=== PATIENT | female | born 2000 | race American Indian/Alaskan Native ===

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

== ENCOUNTER 2021-09-08 17:42 | Emergency (ER) | payer OTHER ==
[2021-09-08 20:17] VITALS: BP 124/64
[2021-09-08 20:49] LABS: Hematocrit 42.9 % (30.3-42.9); Hemoglobin 14.4 gm/dl (10.1-14.3); Mean Corpuscular HGB Conc 33 % (30-34); Mean Corpuscular Volume 82 fl (79-97); Platelet Count 251 K/mm3 (140-440); Red Blood Count 5.25 M/mm3 (3.65-5.03); Red Cell Distribution Width 16.1 % (13.2-15.2)
[2021-09-08 20:50] LABS: Bilirubin,Urine MOD (Negative); Blood,Urine NEG (Negative); Color,Urine Red (Yellow)
[2021-09-08 20:57] LABS: Alanine Aminotransferase 117 units/L (7-56); Blood Urea Nitrogen 6 mg/dL (7-17); Calcium 10.4 mg/dL (8.4-10.2); Hemolysis Index 62
[2021-09-08 20:58] LABS: BUN/Creatinine Ratio 12
[2021-09-08 20:59] LABS: Mucus,Urine FEW /HPF; WBC,Urine < 1.0 /HPF (0.0-6.0)
[2021-09-08 21:00] LABS: Ictotest,Urine Negative (Negative)
--- NOTE | 2021-09-08 21:04 | Ultrasound Report ---
TRANSABDOMINAL OB PELVIC ULTRASOUND INDICATION / CLINICAL INFORMATION: Abdominal pain. COMPARISON: None available. FINDINGS: There is a single intrauterine with an estimated sonographic gestational age of 16 weeks 2 days and an MIRNA of 02/21/22. Clinical dates are 15 weeks 3 days. presentation is cephalic. The heart rate is 160 bpm. Amniotic fluid volume is normal. The placenta is located anteriorly, is grade 0 and is free of the os. There is no evidence of abruption. The cervix measures 3.4 cm in lengt h and the internal os is closed. Neither ovary is identified. No or maternal abnormality is see n. IMPRESSION: Single viable 16 week 2 day intrauterine without complication. Signer Name: Alec Hernadnez MD Signed: 09/08/2021 8:59 PM Workstation Name: [id number]
[2021-09-08] MEDS ORDERED: METOCLOPRAMIDE 10 MG/2 ML INJ IV STA (22:58)
[2021-09-08] MEDS ORDERED: diphenhydrAMINE 50 MG/ML VIAL IV STA (22:58)
--- NOTE | 2021-09-08 23:13 | Emergency Department Report ---
ED General Adult HPI - General Chief complaint: Nausea/Vomiting/Diarrhea Stated complaint: ABD PAIN N/V Time Seen by Provider: 09/08/21 20:41 Source: EMS Mode of arrival: Ambulatory Limitations: No Limitations - History of Present Illness Severity scale (0 -10): 0 - Related Data Previous Rx's Medication Instructions Recorded Last Taken Type Cyclobenzaprine [Flexeril] 10 mg PO Q12H PRN #12 tablet 12/03/19 Unknown Rx Ibuprofen [Motrin] 800 mg PO Q8HR PRN #24 tablet 12/03/19 Unknown Rx Ibuprofen [Motrin] 600 mg PO Q8H PRN #20 tablet 01/23/20 Unknown Rx Sulfamethoxazole/Trimethoprim 1 each PO BID 5 Days #10 tablet 01/23/20 Unknown Rx [Bactrim DS TAB] Ondansetron [Zofran ODT TAB] 8 mg PO Q12HR #20 tab.rapdis 09/08/21 Unknown Rx Allergies Allergy/AdvReac Type Severity Reaction Status Date / Time No Known Allergies Allergy Verified 09/08/21 20:17 ED Review of Systems ROS: Stated complaint: ABD PAIN N/V Other details as noted in HPI Comment: All other systems reviewed and negative ED Past Medical Hx - Past Medical History Previous Medical History?: No - Surgical History Past Surgical History?: No - Social History Smoking Status: Never Smoker Substance Use Type: None - Medications Home Medications: Home Medications Medication Instructions Recorded Confirmed Last Taken Type Cyclobenzaprine [Flexeril] 10 mg PO Q12H PRN #12 tablet 12/03/19 09/08/21 Unknown Rx Ibuprofen [Motrin] 800 mg PO Q8HR PRN #24 tablet 12/03/19 09/08/21 Unknown Rx Ibuprofen [Motrin] 600 mg PO Q8H PRN #20 tablet 01/23/20 09/08/21 Unknown Rx Sulfamethoxazole/Trimethoprim 1 each PO BID 5 Days #10 tablet 01/23/20 09/08/21 Unknown Rx [Bactrim DS TAB] Ondansetron [Zofran ODT TAB] 8 mg PO Q12HR #20 tab.rapdis 09/08/21 Unknown Rx ED Physical Exam - General Limitations: No Limitations General appearance: alert, in no apparent distress - Head Head exam: Present: atraumatic, normocephalic - Eye Eye exam: Present: normal appearance, PERRL Pupils: Present: normal accommodation - ENT ENT exam: Present: normal exam, mucous membranes moist - Neck Neck exam: Present: normal inspection - Respiratory Respiratory exam: Present: normal lung sounds bilaterally. Absent: respiratory distress, wheezes, rales, accessory muscle use, decreased breath sounds - Cardiovascular Cardiovascular Exam: Present: regular rate, normal rhythm. Absent: systolic murmur, diastolic murmur, rubs, gallop - GI/Abdominal GI/Abdominal exam: Present: soft, normal bowel sounds - Extremities Exam Extremities exam: Present: normal inspection - Back Exam Back exam: Present: normal inspection - Neurological Exam Neurological exam: Present: alert, oriented X3 - Psychiatric Psychiatric exam: Present: normal affect, normal mood - Skin Skin exam: Present: warm, dry, intact, normal color. Absent: rash ED Course Vital Signs 09/08/21 09/08/21 17:53 20:15 Temperature 98.7 F 98.6 F Pulse Rate 98 H 79 Respiratory 17 16 Rate Blood Pressure 130/82 124/64 [Right] O2 Sat by Pulse 99 99 Oximetry ED Medical Decision Making - Lab Data Result diagrams: 09/08/21 20:18 09/08/21 20:18 - Medical Decision Making Female presents emergency department complaining of nausea and vomiting without diarrhea. The patient is overall well-appearing and suspected to have hyperemesis gravidarum. Given the history of examination he does not appear to be an emergency cause for the symptoms such as small bowel obstruction, coronary syndrome, bowel ischemia, DKA, pancreatitis, appendicitis, acute abdomen no emergent problem. Patient was treated with Reglan, Benadryl, fluids as well as vitamin D6. After treatment patient is feeling much better tolerating p.o. fluids shows no signs of dehydration Critical care attestation.: If time is entered above; I have spent that time in minutes in the direct care of this critically ill patient, excluding procedure time. ED Disposition Disposition: 01 HOME / SELF CARE / HOMELESS Is pt being admited?: No Does the pt Need Aspirin: No Condition: Stable Instructions: Morning Sickness, Nausea and Vomiting, Adult Additional Instructions: Please be sure to follow-up with MANAGEMENT DEVELOPER as we discussed for further management of your morning sickness. Zofran was prescribed to you as you requested and stated that your MANAGEMENT DEVELOPER prescribes. Although this medication caused minimal improvement in you did advise that this was a medication of choice Prescriptions: Ondansetron [Zofran ODT TAB] 8 mg PO Q12HR #20 tab.garret Referrals: PRIMARY CARE, [Referring] - 3-5 Days
== END 2021-09-08 23:00 | disposition home or self-care (01) ==
LOC: ED 17:42
DX: O21.9 Vomiting of pregnancy, unspecified (principal); Z3A.00 Weeks of gestation of pregnancy not specified
CPT/HCPCS: 36415; 76805; 80053; 81001; 84702; 85027; 99284; J1200; J2765

== ENCOUNTER 2021-10-05 13:19 | Inpatient (IN) | payer OTHER ==
[2021-10-05] MEDS ORDERED: LACTATED RINGERS 500 ML IV ONE (15:06)
--- NOTE | 2021-10-05 20:10 | Ultrasound Report ---
ULTRASOUND OBSTETRIC LIMITED INDICATION / CLINICAL INFORMATION: demise. Clinical Gestational Age (GA) in weeks, days: 20 weeks 1 day TECHNIQUE: Transabdominal. COMPARISON: 09/08/2021. FINDINGS: Single intrauterine without heart tones, compatible with demise. measurem ents correspond to a gestational age of 15 weeks and 5 days. IMPRESSION: Findings consistent with demise. Signer Name: Eliu Duke MD Signed: 10/05/2021 8:06 PM Workstation Name: [id number]
[2021-10-05] MEDS ORDERED: CARBOPROST TROMETHAMINE 250 MCG/1 ML INJ IM PRN (21:36)
[2021-10-05] MEDS ORDERED: ONDANSETRON 4 MG/2 ML INJ IV PRN (21:36)
[2021-10-05] MEDS ORDERED: OXYTOCIN 10 UNIT/1 ML INJ IM PRN (21:36)
[2021-10-05] MEDS ORDERED: BUTORPHANOL 2 MG/1 ML INJ IV PRN (21:36)
[2021-10-05] MEDS ORDERED: TERBUTALINE 1 MG/1 ML INJ SUB-Q PRN (21:36)
[2021-10-05] MEDS ORDERED: ePHEDrine SULFATE 50 MG/1 ML INJ IV PRN (21:36)
[2021-10-05] MEDS ORDERED: MINERAL OIL 30 ML ORAL LIQD PO PRN (21:36)
[2021-10-05] MEDS ORDERED: LIDOCAINE (2%) 20 MG/1 ML VIAL 20 ML MDV INFILTRATI ONE (21:36)
[2021-10-05] MEDS ORDERED: fentaNYL 100 MCG/2 ML INJ IV PRN (21:36)
[2021-10-05] MEDS ORDERED: miSOPROStol 200 MCG TAB PR PRN (21:36)
[2021-10-05] MEDS ORDERED: METHYLERGONOVINE MALEATE 0.2 MG/ML VIAL IM PRN (21:36)
[2021-10-05] MEDS ORDERED: NalbUPHINE 10 MG/1 ML INJ IV PRN (21:36)
[2021-10-05] MEDS ORDERED: ACETAMINOPHEN 325 MG TAB PO PRN (21:36)
[2021-10-05] MEDS ORDERED: LOPERAMIDE 2 MG CAP PO PRN (21:36)
[2021-10-05] MEDS ORDERED: AMPICILLIN/NS 2 GM/100 ML 2 GM/100 ML BAG IV ONE (21:43)
[2021-10-05] MEDS ORDERED: OXYTOCIN DRIP 30 UNITS/500 ML BAG IV SCH ×2 (22:00)
[2021-10-05] MEDS: miSOPROStol 200 MCG TAB PO SCH (22:26)
[2021-10-05 22:56] LABS: Hematocrit 29.3 % (30.3-42.9); Hemoglobin 9.5 gm/dl (10.1-14.3); Mean Corpuscular HGB Conc 33 % (30-34); Mean Corpuscular Volume 85 fl (79-97); Platelet Count 246 K/mm3 (140-440); Red Blood Count 3.43 M/mm3 (3.65-5.03); Red Cell Distribution Width 16.9 % (13.2-15.2)
[2021-10-05 23:22] LABS: Hepatitis C Virus Antibody Non-Reactive (NonReactive)
[2021-10-06] MEDS: miSOPROStol 200 MCG TAB PO SCH ×6 (02:58→21:21)
--- NOTE | 2021-10-06 08:42 | History and Physical Report ---
History of Present Illness Date of examination: 10/06/21 Date of admission: 10/06/21 01:23 Chief complaint: Was seen at [facility] yesterday and was found to have an IUFD. She was also told that she had trich, which needs to be treated. History of present illness: See CC Past History Past Medical History: no pertinent history Past Surgical History: no surgical history Family/Genetic History: none - Obstetrical History Expected Date of Delivery: 02/21/22 Actual Gestation: 20 Week(s) 2 Day(s) : 2 Para: 0 Hx # Term Pregnancies: 0 Number of Living Children: 0 Medications and Allergies Allergies Allergy/AdvReac Type Severity Reaction Status Date / Time No Known Allergies Allergy Verified 09/08/21 20:17 Home Medications Medication Instructions Recorded Confirmed Last Taken Type Cyclobenzaprine [Flexeril] 10 mg PO Q12H PRN #12 tablet 12/03/19 09/08/21 Unknown Rx Ibuprofen [Motrin] 800 mg PO Q8HR PRN #24 tablet 12/03/19 09/08/21 Unknown Rx Ibuprofen [Motrin] 600 mg PO Q8H PRN #20 tablet 01/23/20 09/08/21 Unknown Rx Sulfamethoxazole/Trimethoprim 1 each PO BID 5 Days #10 tablet 01/23/20 09/08/21 Unknown Rx [Bactrim DS TAB] Ondansetron [Zofran ODT TAB] 8 mg PO Q12HR #20 tab.rapdis 09/08/21 Unknown Rx Active Meds: Active Medications Acetaminophen (Acetaminophen 325 Mg Tab) 650 mg PO Q4H PRN PRN Reason: Pain, Mild (1-3) Butorphanol Tartrate (Butorphanol 2 Mg/1 Ml Inj) 1 mg IV Q2H PRN PRN Reason: Pain, Moderate(4-6) LABOR PAIN Butorphanol Tartrate (Butorphanol 2 Mg/1 Ml Inj) 2 mg IV Q2H PRN PRN Reason: Pain , Severe (7-10) Carboprost Tromethamine (Carboprost Tromethamine 250 Mcg/1 Ml Inj) 250 mcg IM ONCE PRN PRN Reason: Uterine Bleeding Ephedrine Sulfate (Ephedrine Sulfate 50 Mg/1 Ml Inj) 10 mg IV Q2M PRN PRN Reason: Hypotension Fentanyl (Fentanyl 100 Mcg/2 Ml Inj) 100 mcg IV Q2H PRN PRN Reason: Pain,Severe (7-10) LABOR PAIN Lactated Ringer's (Lactated Ringers) 1,000 mls @ 125 mls/hr IV DIRECT TYRONE Oxytocin/Sodium Chloride (Pitocin/Ns 30 Unit/500ml) 30 units in 500 mls @ 2 mls/hr IV TITR TYRONE; Protocol Oxytocin/Sodium Chloride (Pitocin/Ns 30 Unit/500ml) 30 units in 500 mls @ 40 mls/hr IV TITR TYRONE; Protocol Loperamide HCl (Loperamide 2 Mg Cap) 2 mg PO ONCE PRN PRN Reason: give with Hemabate Methylergonovine Maleate (Methylergonovine Maleate 0.2 Mg/Ml Vial) 0.2 mg IM ONCE PRN PRN Reason: Uterine Bleeding Metronidazole (Metronidazole 500 Mg Tab) 2,000 mg PO ONCE NR; Protocol Stop: 10/06/21 12:00 Mineral Oil (Mineral Oil 30 Ml Oral Liqd) 30 ml PO QHS PRN PRN Reason: Constipation Misoprostol (Misoprostol 200 Mcg Tab) 800 mcg SC ONCE PRN PRN Reason: Uterine Bleeding Misoprostol (Misoprostol 200 Mcg Tab) 200 mcg PO Q4H TYRONE Last Admin: 10/06/21 06:36 Dose: 200 mcg Nalbuphine HCl (Nalbuphine 10 Mg/1 Ml Inj) 10 mg IV Q2H PRN PRN Reason: Pain, Moderate (4-6) Ondansetron HCl (Ondansetron 4 Mg/2 Ml Inj) 4 mg IV Q8H PRN PRN Reason: Nausea And Vomiting Oxytocin (Oxytocin 10 Unit/1 Ml Inj) 10 unit IM ONCE PRN PRN Reason: Uterine Bleeding Terbutaline Sulfate (Terbutaline 1 Mg/1 Ml Inj) 0.25 mg SUB-Q ONCE PRN PRN Reason: Hyperstimulation/Hypertonicity Review of Systems All systems: negative - Vital Signs Vital signs: Vital Signs Pulse BP 109 H 134/81 10/05/21 14:14 10/05/21 14:14 Temp Pulse Resp BP Pulse Ox 98.0 F 83 16 115/78 99 10/06/21 06:37 10/06/21 08:35 10/05/21 21:45 10/06/21 06:37 10/06/21 08:35 - Physical Exam Breasts: Positive: deferred Cardiovascular: Regular rate Abdomen: Positive: normal appearance Genitourinary (Female): Positive: normal external genitalia Vulva: both: normal Vagina: Positive: normal moisture Uterus: Positive: enlarged - Obstetrical FHR: category 1, other (iufd) Cervical Dilatation: 0 Cervical Effacement Percentage: 80 Uterine Contraction Pattern: Irregular Results Result Diagrams: 10/05/21 22:20 Abnormal lab results 10/05/21 Range/Units 22:20 RBC 3.43 L (3.65-5.03) M/mm3 Hgb 9.5 L (10.1-14.3) gm/dl Hct 29.3 L (30.3-42.9) % RDW 16.9 H (13.2-15.2) % All other labs normal. Assessment and Plan A: IUFD @ 20.1 weeks P: Continue with cytotec Flagyl 2gms x one dose
[2021-10-06] MEDS ORDERED: metroNIDAZOLE 500 MG TAB PO NR (09:00)
[2021-10-06] MEDS: BUTORPHANOL 2 MG/1 ML INJ IV PRN (09:37)
[2021-10-06] MEDS: LACTATED RINGERS 1,000 ML IV SCH (19:13)
--- NOTE | 2021-10-06 21:23 | Event Note ---
Date: 10/06/21 S: Feeling some cramping O: Cervix still closed and firm, Cytotec 200mg placed in vagina A: IUFD at 20.2 weeks P: Will increase Cytotec to 400mcg every 4 hrs
[2021-10-07] MEDS: miSOPROStol 200 MCG TAB VG SCH ×2 (01:36→05:32)
[2021-10-07] MEDS: LACTATED RINGERS 1,000 ML IV SCH ×3 (02:56→20:33)
[2021-10-07] MEDS ORDERED: miSOPROStol 200 MCG TAB PO SCH (10:00)
--- NOTE | 2021-10-07 11:50 | Progress Note ---
Assessment and Plan A: IUFD @ 20 2/7 Weeks Maternal Fever (101.2) P: Continue Cytotec 400mcg sublingual as ordered Start Ampicillin 2G IV q 6 hours Tylenol 650mg PO q [address] Franco due to Maternal Fever Subjective - Subjective Date of service: 10/07/21 Patient reports: other (Denies Cramping and CTX pains) Objective - Vital Signs Vital Signs: Vital Signs - 12hr 10/06/21 10/06/21 10/07/21 23:51 23:56 00:01 Temperature Pulse Rate 80 82 77 Respiratory Rate Blood Pressure O2 Sat by Pulse 99 99 98 Oximetry O2 Sat by Pulse Oximetry [ Throughout] 10/07/21 10/07/21 10/07/21 00:06 00:11 00:16 Temperature Pulse Rate 92 H 94 H 88 Respiratory Rate Blood Pressure O2 Sat by Pulse 98 99 98 Oximetry O2 Sat by Pulse Oximetry [ Throughout] 10/07/21 10/07/21 10/07/21 00:21 00:29 00:34 Temperature Pulse Rate 82 99 H 80 Respiratory Rate Blood Pressure O2 Sat by Pulse 98 99 99 Oximetry O2 Sat by Pulse Oximetry [ Throughout] 10/07/21 10/07/21 10/07/21 00:39 00:44 00:49 Temperature Pulse Rate 74 84 79 Respiratory Rate Blood Pressure O2 Sat by Pulse 99 100 99 Oximetry O2 Sat by Pulse Oximetry [ Throughout] 10/07/21 10/07/21 10/07/21 00:54 00:59 01:04 Temperature Pulse Rate 91 H 82 85 Respiratory Rate Blood Pressure O2 Sat by Pulse 99 100 99 Oximetry O2 Sat by Pulse Oximetry [ Throughout] 10/07/21 10/07/21 10/07/21 01:09 01:14 01:19 Temperature Pulse Rate 77 87 82 Respiratory Rate Blood Pressure O2 Sat by Pulse 99 99 99 Oximetry O2 Sat by Pulse Oximetry [ Throughout] 10/07/21 10/07/21 10/07/21 01:24 01:29 01:34 Temperature Pulse Rate 85 84 84 Respiratory Rate Blood Pressure O2 Sat by Pulse 99 99 99 Oximetry O2 Sat by Pulse Oximetry [ Throughout] 10/07/21 10/07/21 10/07/21 01:39 01:44 01:49 Temperature Pulse Rate 89 111 H 95 H Respiratory Rate Blood Pressure O2 Sat by Pulse 99 98 98 Oximetry O2 Sat by Pulse Oximetry [ Throughout] 10/07/21 10/07/21 10/07/21 01:53 01:59 02:04 Temperature Pulse Rate 81 83 84 Respiratory Rate Blood Pressure O2 Sat by Pulse 99 99 99 Oximetry O2 Sat by Pulse Oximetry [ Throughout] 10/07/21 10/07/21 10/07/21 02:09 02:14 02:19 Temperature Pulse Rate 83 88 85 Respiratory Rate Blood Pressure O2 Sat by Pulse 98 99 99 Oximetry O2 Sat by Pulse Oximetry [ Throughout] 10/07/21 10/07/21 10/07/21 02:24 02:29 02:34 Temperature Pulse Rate 79 87 80 Respiratory Rate Blood Pressure O2 Sat by Pulse 98 99 98 Oximetry O2 Sat by Pulse Oximetry [ Throughout] 10/07/21 10/07/21 10/07/21 02:39 02:44 02:49 Temperature Pulse Rate 79 85 89 Respiratory Rate Blood Pressure O2 Sat by Pulse 98 98 97 Oximetry O2 Sat by Pulse Oximetry [ Throughout] 10/07/21 10/07/21 10/07/21 02:54 02:59 03:04 Temperature Pulse Rate 90 87 95 H Respiratory Rate Blood Pressure O2 Sat by Pulse 98 96 97 Oximetry O2 Sat by Pulse Oximetry [ Throughout] 10/07/21 10/07/21 10/07/21 03:09 03:14 03:19 Temperature Pulse Rate 94 H 94 H 95 H Respiratory Rate Blood Pressure O2 Sat by Pulse 97 97 97 Oximetry O2 Sat by Pulse Oximetry [ Throughout] 10/07/21 10/07/21 10/07/21 03:24 03:29 03:30 Temperature Pulse Rate 91 H 97 H 89 Respiratory Rate Blood Pressure O2 Sat by Pulse 98 96 94 Oximetry O2 Sat by Pulse Oximetry [ Throughout] 10/07/21 10/07/21 10/07/21 03:34 03:39 03:44 Temperature Pulse Rate 95 H 97 H 98 H Respiratory Rate Blood Pressure O2 Sat by Pulse 98 98 97 Oximetry O2 Sat by Pulse Oximetry [ Throughout] 10/07/21 10/07/21 10/07/21 03:49 03:54 03:59 Temperature Pulse Rate 89 94 H 90 Respiratory Rate Blood Pressure O2 Sat by Pulse 98 98 98 Oximetry O2 Sat by Pulse Oximetry [ Throughout] 10/07/21 10/07/2110/07/22 04:04 04:09 04:14 Temperature Pulse Rate 93 H 88 91 H Respiratory Rate Blood Pressure O2 Sat by Pulse 98 99 99 Oximetry O2 Sat by Pulse Oximetry [ Throughout] 10/07/21 10/07/21 10/07/21 04:19 04:24 04:29 Temperature Pulse Rate 91 H 92 H 91 H Respiratory Rate Blood Pressure O2 Sat by Pulse 97 98 99 Oximetry O2 Sat by Pulse Oximetry [ Throughout] 10/07/21 10/07/21 10/07/21 04:34 04:39 04:47 Temperature Pulse Rate 90 89 109 H Respiratory Rate Blood Pressure O2 Sat by Pulse 98 99 98 Oximetry O2 Sat by Pulse Oximetry [ Throughout] 10/07/21 10/07/21 10/07/21 04:52 04:57 05:02 Temperature Pulse Rate 87 86 89 Respiratory Rate Blood Pressure O2 Sat by Pulse 97 97 96 Oximetry O2 Sat by Pulse Oximetry [ Throughout] 10/07/21 10/07/21 10/07/21 05:07 05:12 05:17 Temperature Pulse Rate 89 88 89 Respiratory Rate Blood Pressure O2 Sat by Pulse 97 97 96 Oximetry O2 Sat by Pulse Oximetry [ Throughout] 10/07/21 10/07/21 10/07/21 05:22 05:27 05:32 Temperature Pulse Rate 87 88 87 Respiratory Rate Blood Pressure O2 Sat by Pulse 96 97 98 Oximetry O2 Sat by Pulse Oximetry [ Throughout] 10/07/21 10/07/21 10/07/21 05:37 05:42 05:47 Temperature Pulse Rate 93 H 86 89 Respiratory Rate Blood Pressure O2 Sat by Pulse 96 98 97 Oximetry O2 Sat by Pulse Oximetry [ Throughout] 10/07/21 10/07/21 10/07/21 05:52 05:57 06:02 Temperature Pulse Rate 96 H 91 H 82 Respiratory Rate Blood Pressure O2 Sat by Pulse 100 99 97 Oximetry O2 Sat by Pulse Oximetry [ Throughout] 10/07/21 10/07/21 10/07/21 06:07 06:12 06:17 Temperature Pulse Rate 79 79 84 Respiratory Rate Blood Pressure O2 Sat by Pulse 97 97 97 Oximetry O2 Sat by Pulse Oximetry [ Throughout] 10/07/21 10/07/21 10/07/21 06:22 06:27 06:32 Temperature Pulse Rate 79 85 84 Respiratory Rate Blood Pressure O2 Sat by Pulse 98 97 97 Oximetry O2 Sat by Pulse Oximetry [ Throughout] 10/07/21 10/07/21 10/07/21 06:36 06:42 06:47 Temperature Pulse Rate 87 90 92 H Respiratory Rate Blood Pressure O2 Sat by Pulse 97 98 98 Oximetry O2 Sat by Pulse Oximetry [ Throughout] 10/07/21 10/07/21 10/07/21 06:52 06:57 07:02 Temperature Pulse Rate 95 H 84 86 Respiratory Rate Blood Pressure O2 Sat by Pulse 97 99 98 Oximetry O2 Sat by Pulse Oximetry [ Throughout] 10/07/21 10/07/21 10/07/21 07:07 07:12 07:17 Temperature Pulse Rate 88 81 90 Respiratory Rate Blood Pressure O2 Sat by Pulse 97 98 98 Oximetry O2 Sat by Pulse Oximetry [ Throughout] 10/07/21 10/07/21 10/07/21 07:19 07:22 07:27 Temperature Pulse Rate 87 87 86 Respiratory Rate Blood Pressure 122/66 O2 Sat by Pulse 98 98 Oximetry O2 Sat by Pulse Oximetry [ Throughout] 10/07/21 10/07/21 10/07/21 07:32 07:37 07:42 Temperature Pulse Rate 88 90 85 Respiratory Rate Blood Pressure O2 Sat by Pulse 98 98 98 Oximetry O2 Sat by Pulse Oximetry [ Throughout] 10/07/21 10/07/21 10/07/21 07:47 07:52 07:57 Temperature 99.9 F H Pulse Rate 86 89 85 Respiratory 16 Rate Blood Pressure O2 Sat by Pulse 98 98 99 Oximetry O2 Sat by Pulse 98 Oximetry [ Throughout] 10/07/21 10/07/21 10/07/21 08:06 08:11 08:16 Temperature Pulse Rate 114 H 94 H 86 Respiratory Rate Blood Pressure O2 Sat by Pulse 99 99 99 Oximetry O2 Sat by Pulse Oximetry [ Throughout] 10/07/21 10/07/21 10/07/21 08:21 08:26 08:31 Temperature Pulse Rate 92 H 81 82 Respiratory Rate Blood Pressure O2 Sat by Pulse 99 97 97 Oximetry O2 Sat by Pulse Oximetry [ Throughout] 10/07/21 10/07/21 10/07/21 08:36 08:41 08:46 Temperature Pulse Rate 82 74 76 Respiratory Rate Blood Pressure O2 Sat by Pulse 97 95 97 Oximetry O2 Sat by Pulse Oximetry [ Throughout] 10/07/21 10/07/21 10/07/21 08:51 08:56 09:01 Temperature Pulse Rate 72 85 76 Respiratory Rate Blood Pressure O2 Sat by Pulse 97 96 97 Oximetry O2 Sat by Pulse Oximetry [ Throughout] 10/07/21 10/07/21 10/07/21 09:06 09:11 09:16 Temperature Pulse Rate 88 80 81 Respiratory Rate Blood Pressure O2 Sat by Pulse 97 98 98 Oximetry O2 Sat by Pulse Oximetry [ Throughout] 10/07/21 10/07/21 10/07/21 09:21 09:26 09:31 Temperature Pulse Rate 83 85 85 Respiratory Rate Blood Pressure O2 Sat by Pulse 98 98 98 Oximetry O2 Sat by Pulse Oximetry [ Throughout] 10/07/21 10/07/21 10/07/21 09:41 09:46 09:51 Temperature Pulse Rate 85 86 87 Respiratory Rate Blood Pressure O2 Sat by Pulse 98 98 99 Oximetry O2 Sat by Pulse Oximetry [ Throughout] 10/07/21 10/07/21 10/07/21 09:56 10:01 10:06 Temperature Pulse Rate 87 87 89 Respiratory Rate Blood Pressure O2 Sat by Pulse 99 98 99 Oximetry O2 Sat by Pulse Oximetry [ Throughout] 10/07/21 10/07/21 10/07/21 10:11 10:16 10:21 Temperature Pulse Rate 81 83 81 Respiratory Rate Blood Pressure O2 Sat by Pulse 97 99 98 Oximetry O2 Sat by Pulse Oximetry [ Throughout] 10/07/21 10/07/21 10/07/21 10:26 10:31 10:36 Temperature Pulse Rate 78 81 81 Respiratory Rate Blood Pressure O2 Sat by Pulse 99 98 98 Oximetry O2 Sat by Pulse Oximetry [ Throughout] 10/07/21 10/07/21 10/07/21 10:41 10:46 10:51 Temperature Pulse Rate 80 83 84 Respiratory Rate Blood Pressure O2 Sat by Pulse 98 98 98 Oximetry O2 Sat by Pulse Oximetry [ Throughout] 10/07/21 10/07/21 10/07/21 10:56 11:01 11:06 Temperature Pulse Rate 93 H 73 81 Respiratory Rate Blood Pressure O2 Sat by Pulse 99 99 99 Oximetry O2 Sat by Pulse Oximetry [ Throughout] 10/07/21 10/07/21 10/07/21 11:11 11:16 11:27 Temperature Pulse Rate 85 82 90 Respiratory Rate Blood Pressure 120/60 O2 Sat by Pulse 98 98 Oximetry O2 Sat by Pulse Oximetry [ Throughout] 10/07/21 11:40 Temperature 101.2 F H Pulse Rate Respiratory 18 Rate Blood Pressure O2 Sat by Pulse Oximetry O2 Sat by Pulse Oximetry [ Throughout] - Exam Breasts: normal Cardiovascular: Regular rate Lungs: Clear to auscultation, Normal air movement Abdomen: Present: normal appearance, soft, normal bowel sounds Uterus: Present: normal, firm, fundal height below umbilicus Uterine Contraction Monitor Mode: External Cervical Dilatation: 0 Cervical Effacement Percentage: 0 station: -4 Uterine Contraction Pattern: Absent Uterine Tone Measurement Phase: Resting Extremities: normal - Labs Labs: Abnormal Labs 10/05/21 22:20 RBC 3.43 L Hgb 9.5 L Hct 29.3 L RDW 16.9 H
[2021-10-07] MEDS: AMPICILLIN/NS 2 GM/100 ML 2 GM/100 ML BAG IV SCH ×2 (14:00→20:21)
[2021-10-07] MEDS: miSOPROStol 200 MCG TAB PO SCH ×3 (15:00→22:48)
--- NOTE | 2021-10-07 20:47 | Progress Note ---
Assessment and Plan A: IUFD @ 20 2/7 Weeks P: Continue Cytotec 400mcg sublingual as ordered Blood and Urine Cultures Pending Continue Ampicillin and Tylenol due to a earlier maternal fever Consulted Dr. Franco about patient's concerns of slow induction Dr. Franco recommended notifying her that this is a slow process and the Cytotec will work given time Subjective - Subjective Date of service: 10/07/21 Patient reports: other (Patient is growing concerned because she has received several doses of Cytotec and is only having very light cramping) Objective - Vital Signs Vital Signs: Vital Signs - 12hr 10/07/21 10/07/21 10/07/21 08:41 08:46 08:51 Temperature Pulse Rate 74 76 72 Respiratory Rate Blood Pressure Blood Pressure [Left] O2 Sat by Pulse 95 97 97 Oximetry O2 Sat by Pulse Oximetry [ Throughout] 10/07/21 10/07/21 10/07/21 08:56 09:01 09:06 Temperature Pulse Rate 85 76 88 Respiratory Rate Blood Pressure Blood Pressure [Left] O2 Sat by Pulse 96 97 97 Oximetry O2 Sat by Pulse Oximetry [ Throughout] 10/07/21 10/07/21 10/07/21 09:11 09:16 09:21 Temperature Pulse Rate 80 81 83 Respiratory Rate Blood Pressure Blood Pressure [Left] O2 Sat by Pulse 98 98 98 Oximetry O2 Sat by Pulse Oximetry [ Throughout] 10/07/21 10/07/21 10/07/21 09:26 09:31 09:41 Temperature Pulse Rate 85 85 85 Respiratory Rate Blood Pressure Blood Pressure [Left] O2 Sat by Pulse 98 98 98 Oximetry O2 Sat by Pulse Oximetry [ Throughout] 10/07/21 10/07/21 10/07/21 09:46 09:51 09:56 Temperature Pulse Rate 86 87 87 Respiratory Rate Blood Pressure Blood Pressure [Left] O2 Sat by Pulse 98 99 99 Oximetry O2 Sat by Pulse Oximetry [ Throughout] 10/07/21 10/07/21 10/07/21 10:01 10:06 10:11 Temperature Pulse Rate 87 89 81 Respiratory Rate Blood Pressure Blood Pressure [Left] O2 Sat by Pulse 98 99 97 Oximetry O2 Sat by Pulse Oximetry [ Throughout] 10/07/21 10/07/21 10/07/21 10:16 10:21 10:26 Temperature Pulse Rate 83 81 78 Respiratory Rate Blood Pressure Blood Pressure [Left] O2 Sat by Pulse 99 98 99 Oximetry O2 Sat by Pulse Oximetry [ Throughout] 10/07/21 10/07/21 10/07/21 10:31 10:36 10:41 Temperature Pulse Rate 81 81 80 Respiratory Rate Blood Pressure Blood Pressure [Left] O2 Sat by Pulse 98 98 98 Oximetry O2 Sat by Pulse Oximetry [ Throughout] 10/07/21 10/07/21 10/07/21 10:46 10:51 10:56 Temperature Pulse Rate 83 84 93 H Respiratory Rate Blood Pressure Blood Pressure [Left] O2 Sat by Pulse 98 98 99 Oximetry O2 Sat by Pulse Oximetry [ Throughout] 10/07/21 10/07/21 10/07/21 11:01 11:06 11:11 Temperature Pulse Rate 73 81 85 Respiratory Rate Blood Pressure Blood Pressure [Left] O2 Sat by Pulse 99 99 98 Oximetry O2 Sat by Pulse Oximetry [ Throughout] 10/07/21 10/07/21 10/07/21 11:16 11:27 11:40 Temperature 101.2 F H Pulse Rate 82 90 Respiratory 18 Rate Blood Pressure 120/60 Blood Pressure [Left] O2 Sat by Pulse 98 Oximetry O2 Sat by Pulse Oximetry [ Throughout] 10/07/21 10/07/21 10/07/21 14:32 15:40 16:46 Temperature 99.4 F Pulse Rate 91 H 76 Respiratory 16 Rate Blood Pressure 128/57 129/68 Blood Pressure [Left] O2 Sat by Pulse Oximetry O2 Sat by Pulse Oximetry [ Throughout] 10/07/21 10/07/21 10/07/21 18:00 19:29 19:30 Temperature 99.1 F 98.7 F Pulse Rate 80 80 Respiratory 16 18 Rate Blood Pressure 112/64 Blood Pressure 112/64 [Left] O2 Sat by Pulse Oximetry O2 Sat by Pulse Oximetry [ Throughout] 10/07/21 19:31 Temperature Pulse Rate Respiratory Rate Blood Pressure Blood Pressure [Left] O2 Sat by Pulse Oximetry O2 Sat by Pulse 98 Oximetry [ Throughout] - Exam Cardiovascular: Regular rate Lungs: Normal air movement Abdomen: Present: normal appearance, soft Uterus: Present: normal, firm, fundal height at umbilicus FHR: other Uterine Contraction Monitor Mode: External Cervical Dilatation: 0 Cervical Effacement Percentage: 0 station: -4 Uterine Contraction Pattern: Absent Uterine Tone Measurement Phase: Resting Extremities: normal - Labs Labs: Abnormal Labs 10/05/21 22:20 RBC 3.43 L Hgb 9.5 L Hct 29.3 L RDW 16.9 H
[2021-10-08] MEDS: AMPICILLIN/NS 2 GM/100 ML 2 GM/100 ML BAG IV SCH ×4 (01:53→22:18)
[2021-10-08] MEDS: miSOPROStol 200 MCG TAB PO SCH (02:54)
[2021-10-08] MEDS: LACTATED RINGERS 1,000 ML IV SCH ×3 (09:54→22:18)
[2021-10-08] MEDS: BUTORPHANOL 2 MG/1 ML INJ IV PRN ×2 (11:10→14:37)
--- NOTE | 2021-10-08 13:33 | Procedure Note ---
OB Delivery Note - Delivery Date of Delivery: 10/08/21 (1035) Surgeon: YESSICA MONTOYA Jewelry Cutter: SERVANDO ORELLANA - Vaginal Intrapartum events: febrile- temp >100.3, other(please specify) (IUFD20.4WKS) Delivery induction: misoprostol Delivery monitor: external uterine Route of delivery: other Episiotomy: none Delivery laceration: none - A at 1 minute: 0 (PT WAS IN BATHROOM ON COMMODE WITH BULGING BAG OF WATER. SHE WOULD NOT GET UP AND FETUS CAME OUT.) at 5 minutes: 0 Infant Gender: Ambiguous
[2021-10-08] MEDS ORDERED: diphenhydrAMINE 25 MG CAP PO PRN (13:48)
[2021-10-08] MEDS ORDERED: ONDANSETRON 4 MG/2 ML INJ IV PRN (13:48)
[2021-10-08] MEDS ORDERED: oxyCODONE /ACETAMINOPHEN 5-325MG TAB PO PRN (13:48)
[2021-10-08] MEDS ORDERED: ACETAMINOPHEN 325 MG TAB PO PRN (13:48)
[2021-10-08] MEDS ORDERED: PROMETHAZINE 25 MG TAB PO PRN (13:48)
[2021-10-08] MEDS ORDERED: WITCH HAZEL/ GLYCERIN PAD TP PRN (13:48)
[2021-10-08] MEDS ORDERED: MAGNESIUM HYDROXIDE (MOM) ORAL LIQD UDC PO PRN (13:48)
[2021-10-08] MEDS ORDERED: PROMETHAZINE 25 MG RECT SUPP PR PRN (13:48)
[2021-10-08] MEDS ORDERED: IBUPROFEN 600 MG TAB PO SCH (14:00)
--- NOTE | 2021-10-08 14:00 | Progress Note ---
Assessment and Plan A: IUFD@20.4WKS IOL CYTOTEC LAST DOSE 0300 10/08/21 FEBRILE 10/07/21 P: CONTINUE IOL CONTRACTION MONITORING ANTIBIOTICS ADM ANTICIPATE DELV Subjective - Subjective Date of service: 10/08/21 (929) Principal diagnosis: IUFD Patient reports: other (Patient is growing concerned because she has received several doses of Cytotec and is only having very light cramping) Objective - Vital Signs Vital Signs: Vital Signs - 12hr 10/08/21 10/08/21 10/08/21 07:31 07:33 09:15 Temperature 99 F Pulse Rate 90 76 Respiratory 18 Rate Blood Pressure 134/64 125/82 O2 Sat by Pulse Oximetry O2 Sat by Pulse 98 Oximetry [ Throughout] 10/08/21 10/08/21 10/08/21 10:59 11:08 11:14 Temperature 97.7 F Pulse Rate 80 76 Respiratory 18 Rate Blood Pressure 127/81 128/77 O2 Sat by Pulse 98 Oximetry O2 Sat by Pulse Oximetry [ Throughout] 10/08/21 10/08/21 10/08/21 11:30 11:44 11:59 Temperature Pulse Rate 76 81 92 H Respiratory Rate Blood Pressure 134/96 129/79 124/66 O2 Sat by Pulse Oximetry O2 Sat by Pulse Oximetry [ Throughout] 10/08/21 12:45 Temperature Pulse Rate 74 Respiratory Rate Blood Pressure 127/62 O2 Sat by Pulse Oximetry O2 Sat by Pulse Oximetry [ Throughout] - Exam Cervical Dilatation: 0 Cervical Effacement Percentage: 30 (THICK/ LONG/ POSTERIROR) station: OOP Uterine Contraction Intensity: Moderate (PT STARTING TO FEEL UNCOMFORTABLE, REQUESTING PAIN MEDS) - Labs Labs: Abnormal Labs 10/05/21 22:20 RBC 3.43 L Hgb 9.5 L Hct 29.3 L RDW 16.9 H
--- NOTE | 2021-10-08 14:05 | Event Note ---
Date: 10/08/21 (1310) PLACENTA STILL RETAINED, PATIENT WITH MINIMAL CONTRACTIONS. DR. MONTOYA MADE AWARE.
--- NOTE | 2021-10-08 16:22 | Event Note ---
Date: 10/08/21 (1990) iN ROOM TO REEVALUATE PLACENTA. BOTH FOB AND PT IN BED. VE STILL 3CM/POSTERIOR. PLACENTA STILL RETAINED. MINIMAL BLEED NOTED, PT STATES STILL WITH CX.
--- NOTE | 2021-10-08 21:20 | Event Note ---
Date: 10/08/21 Re-evaluating pt, placenta still attached. Ve 3/posterior. will give pt an epidural to attempt retrieving placenta. Discussed with Dr. Zarate.
[2021-10-08] MEDS ORDERED: DOCUSATE SODIUM 100 MG CAP PO SCH (22:00)
[2021-10-08] MEDS ORDERED: fentaNYL-BUPIV 2 MCG/ML-0.125% 200 MCG/100 ML BAG EPIDURAL SCH (23:45)
[2021-10-08] MEDS ORDERED: NALOXONE 0.4 MG/1 ML INJ IV PRN (23:50)
[2021-10-08] MEDS ORDERED: ePHEDrine SULFATE 50 MG/1 ML INJ IV PRN (23:50)
--- NOTE | 2021-10-08 23:53 | Anesthesia Consultation ---
Anesthesia Consult and Med Hx Date of service: 10/08/21 - Airway Anesthetic Teeth Evaluation: Good ROM Head & Neck: Adequate Mental/Hyoid Distance: Adequate Mallampati Class: Class III Intubation Access Assessment: Probably Good - Pulmonary Exam CTA: Yes - Cardiac Exam Cardiac Exam: RRR - Pre-Operative Health Status ASA Pre-Surgery Classification: ASA2 Proposed Anesthetic Plan: Epidural - Pulmonary Hx Smoking: No Hx Asthma: No Hx Respiratory Symptoms: No SOB: No COPD: No Home Oxygen Therapy: No Hx Pneumonia: No Hx Sleep Apnea: No - Cardiovascular System Hx Hypertension: No Hx Coronary Artery Disease: No Hx Heart Attack/AMI: No Hx Angina: No Hx Percutaneous Transluminal Coronary Angioplasty (PTCA): No Hx Cardia Arrhythmia: No Hx Pacemaker: No Hx Internal Defibrillator: No Hx Valvular Heart Disease: No Hx Heart Murmur: No Hx Peripheral Vascular Disease: No - Central Nervous System Hx Neuromuscular Disorder: No Hx Seizures: No CVA: No Hx Back Pain: No Hx Psychiatric Problems: No - Gastrointestinal Hx Ulcer: No Hx Gastroesophageal Reflux Disease: No - Endocrine Hx Renal Disease: No Hx End Stage Renal Disease: No Hx Cirrhosis: No Hx Liver Disease: No Hx Insulin Dependent Diabetes: No Hx Non-Insulin Dependent Diabetes: No Hx Thyroid Disease: No Hx Hypothyroidism: No Hx Hyperthyroidism: No - Hematic Hx Anemia: No Hx Sickle Cell Disease: No - Other Systems Hx Alcohol Use: No Hx Substance Use: No Hx Cancer: No Hx Obesity: No
--- NOTE | 2021-10-08 23:53 | Anesthesia Day of Surgery ---
Anesthesia Day of Surgery - Day of Surgery Patient Examined: Yes Patient H&P Reviewed: Yes Patient is NPO: Yes Beta Blockers: No Cardiac Clearance: No Pulmonary Clearance: No Maulik's Test: N/A
--- NOTE | 2021-10-09 00:02 | Progress Note ---
Labor Epidural - Labor Epidural Start Time: 23:20 Stop Time: 23:32 Performed by:: GEOFFREY PEÑA Procedure: An epidural is being requested to assist in the release of the placenta after the baby was born at 13:13. H&P and labs reviewed. Procedure explained, questions answered, consent obtained. Patient placed in sitting position with monitors applied. Timeout performed immediately before start of procedure. Prep/drape in usual sterile fashion. Skin localized 3 mL 1% lidocaine at L[3]- L[4] x 1 attempt. 17-gauge Touhy epidural needle advanced to BETY with saline at [7] cm. No blood/CSF noted via epidural needle. Epidural catheter advanced to [12] cm. Negative aspiration for blood and CSF via catheter, negative response to test dose 3 ml 1.5% lidocaine w/ Epi. Sterile dressing applied followed by tape reinforcement. Patient tolerated procedure well. No immediate complications noted.
--- NOTE | 2021-10-09 01:45 | Event Note ---
Date: 10/09/21 (0025) Attempted to remove placenta after epidural. Patient placed on labor bed with legs up in stirups. Speculum placed for visualization. Placenta fragmented, minimal amount of placenta removed. Patient did not tolerate procedure well. [id number]. Dr. Zarate contacted for D&C.
[2021-10-09] MEDS ORDERED: LIDOCAINE MPF (2%) 20 MG/1 ML VIAL 5 ML ONE (01:59)
[2021-10-09] MEDS ORDERED: propofoL 200 MG/20 ML VIAL IV ONE (01:59)
[2021-10-09] MEDS ORDERED: fentaNYL 100 MCG/2 ML INJ ONE (02:00)
[2021-10-09] MEDS ORDERED: MIDAZOLAM 2 MG/2 ML INJ ONE (02:00)
[2021-10-09] MEDS ORDERED: ONDANSETRON 4 MG/2 ML INJ ONE (02:02)
[2021-10-09] MEDS ORDERED: PHENYLEPHRINE/NS 1,000 MCG/10 ML SYRINGE (OR USE) IV ONE (02:23)
[2021-10-09] MEDS ORDERED: SODIUM CHLORIDE 0.9% 500 ML 500 ML ONE (02:35)
[2021-10-09] MEDS ORDERED: OXYTOCIN 10 UNIT/1 ML INJ ONE (02:35)
[2021-10-09] MEDS ORDERED: HYDROcodone/ACETAMINOPHEN 5-325 MG TAB PO PRN (02:50)
[2021-10-09] MEDS ORDERED: LANOLIN/ZINC/DIMETHICONE (LANSINOH) 7 GM TP PRN (02:50)
[2021-10-09] MEDS ORDERED: MAGNESIUM HYDROXIDE (MOM) ORAL LIQD UDC PO PRN (02:50)
[2021-10-09] MEDS ORDERED: WITCH HAZEL/ GLYCERIN PAD TP PRN (02:50)
[2021-10-09] MEDS ORDERED: PROMETHAZINE 25 MG TAB PO PRN (02:50)
[2021-10-09] MEDS ORDERED: ONDANSETRON 4 MG/2 ML INJ IV PRN (02:50)
[2021-10-09] MEDS ORDERED: PROMETHAZINE 25 MG RECT SUPP PR PRN (02:50)
[2021-10-09] MEDS ORDERED: diphenhydrAMINE 25 MG CAP PO PRN (02:50)
--- NOTE | 2021-10-09 02:50 | Post Operative Note ---
Pre-op diagnosis: Retained placenta s/p iufd at 16 weeks Post-op diagnosis: same Findings: Placenta with dilated cervix to 3 cm Procedure: D&E Anesthesia: MAC Surgeon: YESSICA MONTOYA Estimated blood loss: other Pathology: list (products of conception) Specimen disposition: to lab Condition: stable Disposition: PACU
[2021-10-09] MEDS ORDERED: IBUPROFEN 600 MG TAB PO SCH (03:00)
[2021-10-09] MEDS ORDERED: OXYTOCIN DRIP 30 UNITS/500 ML BAG IV SCH (03:00)
--- NOTE | 2021-10-09 03:06 | Anesthesia Consultation ---
Anesthesia Consult and Med Hx - Airway Anesthetic Teeth Evaluation: Good ROM Head & Neck: Adequate Mental/Hyoid Distance: Adequate Mallampati Class: Class III Intubation Access Assessment: Probably Good - Pulmonary Exam CTA: Yes - Cardiac Exam Cardiac Exam: RRR - Pre-Operative Health Status ASA Pre-Surgery Classification: ASA2, Emergency Proposed Anesthetic Plan: General - Pulmonary Hx Smoking: No Hx Asthma: No Hx Respiratory Symptoms: No SOB: No COPD: No Home Oxygen Therapy: No Hx Pneumonia: No Hx Sleep Apnea: No - Cardiovascular System Hx Hypertension: No Hx Coronary Artery Disease: No Hx Heart Attack/AMI: No Hx Angina: No Hx Percutaneous Transluminal Coronary Angioplasty (PTCA): No Hx Cardia Arrhythmia: No Hx Pacemaker: No Hx Internal Defibrillator: No Hx Valvular Heart Disease: No Hx Heart Murmur: No Hx Peripheral Vascular Disease: No - Central Nervous System Hx Neuromuscular Disorder: No Hx Seizures: No CVA: No Hx Back Pain: No Hx Psychiatric Problems: No - Gastrointestinal Hx Ulcer: No Hx Gastroesophageal Reflux Disease: No - Endocrine Hx Renal Disease: No Hx End Stage Renal Disease: No Hx Cirrhosis: No Hx Liver Disease: No Hx Insulin Dependent Diabetes: No Hx Non-Insulin Dependent Diabetes: No Hx Thyroid Disease: No Hx Hypothyroidism: No Hx Hyperthyroidism: No - Hematic Hx Anemia: No Hx Sickle Cell Disease: No - Other Systems Hx Alcohol Use: No Hx Substance Use: No Hx Cancer: No Hx Obesity: No
--- NOTE | 2021-10-09 03:08 | Procedure Note ---
Date of procedure: 10/09/21 Pre-op diagnosis: Retained Placenta Post-op diagnosis: same Anesthesia: GETA Estimated blood loss: 50-100ml IV fluids: 1,100 Urine output: 0 Condition: stable Disposition: PACU
[2021-10-09 06:32] LABS: Hematocrit 24.2 % (30.3-42.9)
[2021-10-09] MEDS ORDERED: FERROUS SULFATE 325 MG TAB PO SCH (10:00)
[2021-10-09] MEDS ORDERED: DOCUSATE SODIUM 100 MG CAP PO SCH (10:00)
[2021-10-09] MEDS: AMPICILLIN/NS 2 GM/100 ML 2 GM/100 ML BAG IV SCH (10:52)
--- NOTE | 2021-10-09 13:34 | Progress Note ---
Assessment and Plan POD#0 Suction dilatation and curettage for retained placenta, PPD#1 of IUFD and pt appears to be coping well; Asymptomatic anemia 1. Routine post op care and pt to follow up with [facility] in 4wks 2. Will give iron supplement All questions encouraged and answered Subjective Date of service: 10/09/21 Principal diagnosis: IUFD w/ retained placenta; S/P Suction Dilatation and Curettage; Anemia Interval history: pt has no complaints and wants to go home. Vag bleed less than a period and pain controlled with meds. Pt declines [employer]. Partner present in room and pt states that's her support system. Pt voiding without difficulty. Objective - Constitutional Vitals: Vital Signs - 12hr 10/09/21 10/09/21 10/09/21 01:31 01:36 02:58 Temperature 98.2 F Pulse Rate 71 79 95 H Respiratory 13 Rate Blood Pressure 146/60 O2 Sat by Pulse 100 100 100 Oximetry O2 Sat by Pulse Oximetry [ Throughout] 10/09/21 10/09/21 10/09/21 03:01 03:04 03:08 Temperature Pulse Rate 93 H 90 Respiratory 21 20 18 Rate Blood Pressure 124/95 143/63 O2 Sat by Pulse 100 100 Oximetry O2 Sat by Pulse Oximetry [ Throughout] 10/09/21 10/09/21 10/09/21 03:20 03:35 04:00 Temperature 98.1 F Pulse Rate 91 H 86 89 Respiratory 20 21 20 Rate Blood Pressure 125/57 125/56 123/55 O2 Sat by Pulse 99 99 100 Oximetry O2 Sat by Pulse Oximetry [ Throughout] 10/09/21 10/09/21 10/09/21 04:08 05:31 06:29 Temperature 97.9 F Pulse Rate 84 Respiratory 18 16 Rate Blood Pressure 127/59 O2 Sat by Pulse 100 Oximetry O2 Sat by Pulse 98 Oximetry [ Throughout] 10/09/21 10/09/21 10/09/21 08:10 08:30 12:18 Temperature 97.8 F 97.9 F Pulse Rate 91 H 88 Respiratory 20 20 Rate Blood Pressure 103/50 106/49 O2 Sat by Pulse 99 100 Oximetry O2 Sat by Pulse 98 Oximetry [ Throughout] General appearance: Present: no acute distress - Neck Neck: normal ROM - Respiratory Respiratory effort: normal - Breasts Breasts: deferred Extremities: No edema - Gastrointestinal General gastrointestinal: Present: soft, non-tender - Genitourinary Female genitourinary: other (Fundus 2cm below umbilicus and mild tenderness; lochia small) - Integumentary Integumentary: warm, dry - Neurologic Neurologic: moves all extremities - Labs CBC & Chem 7: 10/09/21 05:58 Labs: Abnormal lab results 10/09/21 Range/Units 05:58 Hgb 8.0 L (10.1-14.3) gm/dl Hct 24.2 L (30.3-42.9) % Medications & Allergies - Medications Allergies/Adverse Reactions: Allergies No Known Allergies Allergy (Verified 09/08/21 20:17) Home Medications: Home Medications Medication Instructions Recorded Confirmed Last Taken Type Cyclobenzaprine [Flexeril] 10 mg PO Q12H PRN #12 tablet 12/03/19 09/08/21 Unknown Rx Ibuprofen [Motrin] 800 mg PO Q8HR PRN #24 tablet 12/03/19 09/08/21 Unknown Rx Ibuprofen [Motrin] 600 mg PO Q8H PRN #20 tablet 01/23/20 09/08/21 Unknown Rx Sulfamethoxazole/Trimethoprim 1 each PO BID 5 Days #10 tablet 01/23/20 09/08/21 Unknown Rx [Bactrim DS TAB] Ondansetron [Zofran ODT TAB] 8 mg PO Q12HR #20 tab.rapdis 09/08/21 Unknown Rx Active Medications: Generic Name Dose Route Start Last Admin Trade Name Freq PRN Reason Stop Dose Admin Acetaminophen 650 mg 10/08/21 13:48 Acetaminophen 325 Mg Tab PO Q4H PRN Pain MILD(1-3)/Fever >100.5/JACKSON Hydrocodone Bitart/Acetaminophen 2 each 10/09/21 02:50 Hydrocodone/Acetaminophen 5-325 Mg Tab PO Q6H PRN Pain, Moderate (4-6) Bisacodyl 10 mg 10/09/21 02:50 Bisacodyl 10 Mg Rect Supp OK BID PRN Constipation Carboprost Tromethamine 250 mcg 10/05/21 21:36 Carboprost Tromethamine 250 Mcg/1 Ml Inj IM ONCE PRN Uterine Bleeding Diphenhydramine HCl 25 mg 10/09/21 02:50 Diphenhydramine 25 Mg Cap PO Q6H PRN Itching Docusate Sodium 100 mg 10/09/21 10:00 10/09/21 10:18 Docusate Sodium 100 Mg Cap PO 100 mg BID TYRONE Administration Ephedrine Sulfate 10 mg 10/08/21 23:50 Ephedrine Sulfate 50 Mg/1 Ml Inj IV Q2M PRN Hypotension Ferrous Sulfate 325 mg 10/09/21 10:00 10/09/21 10:18 Ferrous Sulfate 325 Mg Tab PO 325 mg BID TYRONE Administration Lactated Ringer's 1,000 mls @ 125 mls/hr 10/05/21 21:45 10/08/21 22:18 Lactated Ringers IV 125 mls/hr DIRECT TYRONE Administration Ampicillin Sodium 2 gm in 100 mls @ 100 mls/hr 10/07/21 12:00 10/09/21 10:52 Ampicillin/Ns 2 Gm/100 Ml IV 100 mls/hr Q6H TYRONE Administration Protocol Fentanyl/Bupivacaine/Sodium Chlor 200 mcg in 100 mls @ 12 mls/hr 10/08/21 23:45 Fentanyl-Bupiv 2 Mcg/Ml-0.125% EPIDURAL TITR [facility] Protocol Oxytocin/Sodium Chloride 30 units in 500 mls @ 40 mls/hr 10/09/21 03:00 Pitocin/Ns 30 Unit/500ml IV TITR [facility] Protocol Ibuprofen 600 mg 10/09/21 03:00 10/09/21 05:54 Ibuprofen 600 Mg Tab PO 600 mg Q6H TYRONE Administration Loperamide HCl 2 mg 10/05/21 21:36 Loperamide 2 Mg Cap PO ONCE PRN give with Hemabate Magnesium Hydroxide 30 ml 10/09/21 02:50 Magnesium Hydroxide (Mom) Oral Liqd Udc PO HS PRN Constipation Methylergonovine Maleate 0.2 mg 10/05/21 21:36 Methylergonovine Maleate 0.2 Mg/Ml Vial IM ONCE PRN Uterine Bleeding Mineral Oil 30 ml 10/05/21 21:36 Mineral Oil 30 Ml Oral Liqd PO QHS PRN Constipation Multi-Ingredient Ointment 1 applic 10/09/21 02:50 Lanolin/Zinc/Dimethicone (Lansinoh) 7 Gm TP PRN PRN Sore Nipples Naloxone HCl 0.2 mg 10/08/21 23:50 Naloxone 0.4 Mg/1 Ml Inj IV Q5MIN PRN Respiratory sedation Ondansetron HCl 4 mg 10/09/21 02:50 Ondansetron 4 Mg/2 Ml Inj IV Q8H PRN Nausea And Vomiting Oxytocin 10 unit 10/05/21 21:36 Oxytocin 10 Unit/1 Ml Inj IM ONCE PRN Uterine Bleeding Promethazine HCl 25 mg 10/09/21 02:50 Promethazine 25 Mg Rect Supp OK Q6H PRN Nausea And Vomiting Promethazine HCl 25 mg 10/09/21 02:50 Promethazine 25 Mg Tab PO Q6H PRN Nausea And Vomiting Sodium Chloride 10 ml 10/09/21 03:00 Sodium Chloride 0.9% 10 Ml Flush Syringe IV PRN PRN LINE FLUSH Terbutaline Sulfate 0.25 mg 10/05/21 21:36 Terbutaline 1 Mg/1 Ml Inj SUB-Q ONCE PRN Hyperstimulation/Hypertonicity Witch Edith/Glycerin 1 each 10/09/21 02:50 Witch Edith/ Glycerin Pad TP PRN PRN Hemorrhoid/cleansing/soothing
[2021-10-09 15:48] LABS: Basophils # (Auto) TNR K/mm3 (0.0-0.1); Basophils % (Auto) TNR % (0.0-1.8); Eosinophils # (Auto) TNR K/mm3 (0.0-0.4); Eosinophils % (Auto) TNR % (0.0-4.3); Hematocrit TNR % (30.3-42.9); Hemoglobin TNR gm/dl (10.1-14.3); Lymphocytes # (Auto) TNR K/mm3 (1.2-5.4); Lymphocytes % (Auto) TNR % (13.4-35.0); Mean Corpuscular HGB Conc TNR % (30-34); Mean Corpuscular Volume TNR fl (79-97); Monocytes # (Auto) TNR K/mm3 (0.0-0.8); Monocytes % (Auto) TNR % (0.0-7.3); Platelet Count TNR K/mm3 (140-440); Red Blood Count TNR M/mm3 (3.65-5.03); Red Cell Distribution Width TNR % (13.2-15.2)
[2021-10-09 15:52] LABS: Basophils % (Auto) 0.3 % (0.0-1.8); Eosinophils # (Auto) 0.2 K/mm3 (0.0-0.4); Eosinophils % (Auto) 2.7 % (0.0-4.3); Hematocrit 22.5 % (30.3-42.9); Hemoglobin 7.2 gm/dl (10.1-14.3); Lymphocytes # (Auto) 1.2 K/mm3 (1.2-5.4); Lymphocytes % (Auto) 17.5 % (13.4-35.0); Mean Corpuscular HGB Conc 32 % (30-34); Mean Corpuscular Volume 87 fl (79-97); Monocytes # (Auto) 0.7 K/mm3 (0.0-0.8); Monocytes % (Auto) 9.7 % (0.0-7.3); Platelet Count 236 K/mm3 (140-440); Red Blood Count 2.59 M/mm3 (3.65-5.03); Red Cell Distribution Width 16.9 % (13.2-15.2)
[2021-10-09 17:06] VITALS: BP 124/54
[2021-10-09] MEDS ORDERED: SODIUM FERRIC GLUCON/SUCRO 125 MG in SODIUM CHLORIDE 0.9% 100 ML IV ONE (17:30)
--- NOTE | 2021-10-09 18:55 | Discharge Summary ---
Providers - Providers Date of Admission: 10/06/21 01:23 Date of discharge: 10/09/21 Attending physician: EWA GARIBAY MD Primary care physician: LONNIE CORTEZ Hospitalization Reason for admission: IUFD (at 20wks) Delivery: Episiotomy: none Laceration: none Other procedures: curettage (for retained placenta) complications: retained placenta, other (anemia, hgb 7.2, asymptomatic) Discharge diagnosis: other (IUFD) Hospital course: pt at 20.1wks with IUFD from [facility] clinic admitted and given cytotec induction. Pt had vag delivery and sex not seen in the note of provider. Pt with retained placenta and had to be taken to OR for dilatation and curettage. Pt with asymptomatic anemia and hgb 7.2. Pt wanted to go home today therefore she was counseled and given IV Ferrlecit with good effect. Vitals remained within normal limits and pt given iron and vitamin supplements and percocet prn pain for discharge med. Pt with Rh neg and to receive rhogam prior to discharge home today. Condition at discharge: Good Disposition: 01 HOME / SELF CARE / HOMELESS Plan - Discharge Medications Prescriptions: Ferrous Sulfate [Ferrous Sulfate 324 MG] 324 mg PO BID 30 Days #60 tab Ibuprofen [Motrin] 800 mg PO Q8HR PRN 21 Days #40 tablet PRN Reason: Pain, Moderate (4-6) oxyCODONE /ACETAMINOPHEN [Percocet 5/325] 1 tab PO Q4HR PRN 21 Days #30 tab PRN Reason: Pain , Severe (7-10) Ascorbic Acid [Vitamin C] 500 mg PO Q12H 30 Days #60 tablet - Provider Discharge Summary Additional instructions: [] Smoking cessation referral if applicable(refer to patient education folder for contact #) [] Refer to [facility] Booklet Call your doctor immediately for: * Fever > 100.5 * Heavy vaginal bleeding ( >1 pad per hour) * Severe persistent headache * Shortness of breath * Reddened, hot, painful area to leg or breast * Drainage or odor from incision. * Keep incision clean and dry at all times and follow doctor's instructions regarding bathing/showering - Follow up plan Follow up: LONNIE CORTEZ MD [Primary Care Provider] - 7 Days Forms: [facility] Discharge Summary
--- NOTE | 2021-10-09 20:02 | Post Anesthesia Evaluation ---
- Post Anesthesia Evaluation Patient Participated: Yes Airway Patent: Yes Stable Respiratory Function: Yes Nausea/Vomiting: No Temp > 96.8F: Yes Pain Manageable: Yes Adequeate Hydration: Yes Anesthesia Complications: No Block Receding Appropriately: Yes Patient on Ventilator: No
== END 2021-10-09 22:53 | disposition home or self-care (01) | DRG 767 ==
LOC: TRG 13:19 → APU 13:22 → LD 21:38 → TRG 10-06 01:09 → LD 10-06 01:23 → OB 10-09 05:38
PROVIDERS: ADMIT Obstetrics & Gynecology; ATTEND Obstetrics & Gynecology
PROC: 10E0XZZ Delivery of Products of Conception, External Approach (ICD-10-PCS; principal; 2021-10-08)
PROC: 3E0P7VZ Introduction of Hormone into Female Reproductive, Via Natural or Artificial Opening (ICD-10-PCS; 2021-10-08)
PROC: 3E0R3BZ Introduction of Anesthetic Agent into Spinal Canal, Percutaneous Approach (ICD-10-PCS; 2021-10-08)
PROC: 00HU33Z Insertion of Infusion Device into Spinal Canal, Percutaneous Approach (ICD-10-PCS; 2021-10-08)
PROC: 10D17ZZ Extraction of Products of Conception, Retained, Via Natural or Artificial Opening (ICD-10-PCS; 2021-10-09)
PROC: 3E0234Z Introduction of Serum, Toxoid and Vaccine into Muscle, Percutaneous Approach (ICD-10-PCS; 2021-10-09)
DX: O36.4XX0 Maternal care for intrauterine death, not applicable or unspecified (principal); Z37.1 Single stillbirth; Z20.822 Contact with and (suspected) exposure to COVID-19; O90.81 Anemia of the puerperium; O26.893 Other specified pregnancy related conditions, third trimester; Z67.11 Type A blood, Rh negative; Z3A.20 20 weeks gestation of pregnancy; O75.2 Pyrexia during labor, not elsewhere classified; O73.0 Retained placenta without hemorrhage
CPT/HCPCS: 36415; 76816; 85014; 85018; 85025; 85027; 85461; 86592; 86706; 86762; 86803; 86850; 86900; 86901; 87040; 87086; 87806; 88305; G0378; J0290; J0595; J2250; J2370; J2405; J2590; J2704; J2790; J2916; J3010; J7040; J7120; U0003